=== PATIENT | male | born 1950 | race Caucasian/White ===

== ENCOUNTER 2020-10-04 16:36 | Emergency (ER) | payer OTHER ==
[~2020-10-04] VITALS: Ht 180.3 cm; Wt 87.1 kg
[2020-10-04] MEDS ORDERED: Cymbalta20 MG PO (16:48)
[2020-10-04] MEDS ORDERED: TELM80 PO (16:48)
[2020-10-04] MEDS ORDERED: ATOR40TA PO (16:48)
[2020-10-04 17:13] LABS: BASOPHILS ABSOLUTE AUTO 0.05 K/mm3 (0.00-0.23); BASOPHILS PERCENT AUTO 1 % (0-2); EOSINOPHILS ABSOLUTE AUTO 0.33 K/mm3 (0.00-0.68); EOSINOPHILS PERCENT AUTO 5 % (0-6); Hematocrit 40.5 % (37.0-53.0); Hemoglobin 13.5 g/dL (13.5-17.5); IMMATURE GRAN ABSOLUTE AUTO 0.02 K/mm3 (0.00-0.10); IMMATURE GRAN PERCENT AUTO 0 % (0-1); LYMPHOCYTES ABSOLUTE AUTO 1.62 K/mm3 (0.84-5.20); LYMPHOCYTES PERCENT AUTO 25 % (21-46); MONOCYTES ABSOLUTE AUTO 0.51 K/mm3 (0.16-1.47); MONOCYTES PERCENT AUTO 8 % (4-13); Mean Corpuscular HGB 31.1 pg (26.0-34.0); Mean Corpuscular HGB Conc 33.3 g/dL (31.5-36.5); Mean Corpuscular Volume 93 fL (80-100); Mean Platelet Volume 9.6 fL (9.1-12.4); NEUTROPHILS ABSOLUTE AUTO 3.91 K/mm3 (1.96-9.15); NEUTROPHILS PERCENT AUTO 61 % (41-73); Platelet Count 194 K/mm3 (150-400); RDW Coefficient Variation 13.2 % (11.7-14.2); RDW Standard Deviation 45.1 fL (35.1-46.3); Red Blood Cell Count 4.34 M/mm3 (4.30-5.90); White Blood Cell Count 6.44 K/mm3 (4.00-11.30)
[2020-10-04 17:35] LABS: Alanine Aminotransfer (ALT/SGP 22 U/L (12-78); Albumin, Blood 3.4 g/dL (3.4-5.0); Albumin/Globulin Ratio 1.1 (0.8-1.8); Alk Phos 65 U/L (50-136); Anion Gap 7 mmol/L (6-16); Aspartate Aminotrans (AST/SGOT 21 U/L (12-37); Bilirubin, Total 0.5 mg/dL (0.1-1.0); Blood Urea Nitrogen 17 mg/dL (8-24); Bun/Creatinine Ratio 14.8 (12.0-20.0); CO2, Blood 25 mmol/L (21-32); Calcium, Blood 8.5 mg/dL (8.5-10.1); Chloride, Blood 108 mmol/L (98-108); Creatinine, Blood 1.15 mg/dL (0.60-1.20); Globulin, Blood 3.2 g/dL (2.2-4.0); Glomerular Filtration Rate >60 (60-); Glucose, Blood 118 mg/dL (70-99); Potassium, Blood 3.8 mmol/L (3.5-5.5); Sodium, Blood 140 mmol/L (136-145); Total Protein, Blood 6.6 g/dL (6.4-8.2)
[2020-10-04] MEDS ORDERED: AMOCLA875 PO (19:53)
== END 2020-10-04 20:14 | disposition home or self-care (01) ==
LOC: ER 16:36
PROVIDERS: Physician Assistant
DX: R55 Syncope and collapse (principal); S09.90XA Unspecified injury of head, initial encounter; S01.511A Laceration without foreign body of lip, initial encounter; S02.2XXA Fracture of nasal bones, initial encounter for closed fracture; W18.39XA Other fall on same level, initial encounter; I10 Essential (primary) hypertension; F17.290 Nicotine dependence, other tobacco product, uncomplicated; Z91.041 Radiographic dye allergy status
CPT/HCPCS: 12011; 36415; 70450; 72125; 80053; 85025; 93005; 93010; 99284-25; A9270; G0480; L0160